=== PATIENT | female | born 1940 | race Hispanic/Latino ===

== ENCOUNTER 2018-04-11 21:30 | Emergency (ER) | payer OTHER, BC ==
--- OUTSIDE RECORDS SUMMARY | 2018-04-11 21:32 | XMS REPORT ---
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 Meclizine HCl ND 49359515793 25 MG Orally Aug 14, Active 1 tablet every 6 hrs. 2017 as needed Methocarbamol [facility] 91032285580 500 MG Oral Active TAKE 1 TABLET BY MOUTH 3 TIMES A DAY FOR MUSCLE SPASMS Cozaar [facility] 61049332427 25 MG Orally Aug 17, Active 1 tablet Once a day 2017 Norvasc [facility] 81831149123 2.5 MG Active TAKE 1 TABLET BY MOUTH EVERY DAY Trimethoprim [facility] 87649092636 100 MG Oral Active TAKE 1 TABLET BY MOUTH EVERY DAY Amlodipine [facility] 39766469252 2.5 MG Oral Active TAKE 1 Besylate TABLET BY MOUTH EVERY DAY Losartan ND 67320674978 100 MG Oral Active 1/2 tab Potassium Once a day Triamterene-HCTZ ND 79544470624 37.5-25 MG Oral Active TAKE ONE CAPSULE BY MOUTH EVERY DAY Cozaar [facility] 58047669033 100 MG Active TAKE 1 TABLET BY MOUTH EVERY DAY Voltaren [facility] [address]-14 25 MG Orally Aug 17, Active 1 tablet Four times a 2018 with food day or milk Results No Known Results Summary Purpose eClinicalWorks Submission
--- OUTSIDE RECORDS SUMMARY | 2018-04-11 21:32 | XMS REPORT ---
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 Problem Essential hypertension I10 Active Problem Total knee replacement status Z96.659 Active Assessment Total knee replacement status Z96.659 Active Assessment Pain, joint, knee, left M25.562 Active Medications Medication Code Code Instructions Start End Status Dosage System Date Date Norvasc [facility] 31629502817 2.5 MG Active TAKE 1 TABLET BY MOUTH EVERY DAY Sertraline HCl [facility] 48726780720 25 MG Orally Active 1 tablet Once a day Trospium [facility] 21232020862 60 MG Oral Active TAKE 1 Chloride ER CAPSULE(S ) EVERY DAY BY ORAL ROUTE FOR 30 DAYS. Losartan [facility] 70393975510 100 MG Oral Active 1/2 tab Potassium Once a day Cozaar ND 18840281915 25 MG Orally Aug 17, Active 1 tablet Once a day 2017 Methocarbamol ND 98108336729 500 MG Oral Active TAKE 1 TABLET BY MOUTH 3 TIMES A DAY FOR MUSCLE SPASMS Triamterene-HCTZ [facility] 78243884361 37.5-25 MG Oral Active TAKE ONE CAPSULE BY MOUTH EVERY DAY Voltaren [facility] [address]-80 25 MG Orally Aug 17, Active 1 tablet Four times a 2018 with food day or milk Trimethoprim [facility] 66521217787 100 MG Oral Active TAKE 1 TABLET BY MOUTH EVERY DAY Amlodipine ND 43271955595 2.5 MG Oral Active TAKE 1 Besylate TABLET BY MOUTH EVERY DAY Vitamin C ND 89477787265 1000 MG Orally Aug 17, Active 1 tablet Once a day 2018 Meclizine HCl ND 81423905235 25 MG Orally Aug 14, Active 1 tablet every 6 hrs. 2018 as needed Results No Known Results Summary Purpose eClinicalWorks Submission
--- OUTSIDE RECORDS SUMMARY | 2018-04-11 21:32 | XMS REPORT ---
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
[2018-04-11] MEDS ORDERED: IBUPROFEN 400 MG TAB ONE (21:38)
[2018-04-11] MEDS ORDERED: ACETAMINOPHEN 325 MG TABLET ONE (21:39)
[2018-04-11] MEDS ORDERED: NA CHLORIDE 0.9% 1,000 ML ONE (22:08)
[2018-04-11 22:17] LABS: Absolute Lymphocytes (CBC) 0.6 K/uL (0.7-4.9); Absolute Monocytes 0.2 K/uL (0.1-1.3); Absolute Neutrophil 9.3 K/uL (1.8-8.0); Basophils % 0.2 % (0-1.3); Eosinophils % 0.2 % (0-4.4); Hematocrit 31.4 % (36.0-45.0); Lymphocytes % 5.9 % (15.3-44.8); MCH 31.6 pg (27.0-35.0); MCV 93.9 fL (80-100); MPV 9.9 fL (7.6-11.3); Monocytes % 1.7 % (3.3-12.3); RBC Red Blood Cell Count 3.35 M/uL (3.86-4.86)
[2018-04-11 22:20] LABS: Protime INR 1.14
[2018-04-11 22:37] LABS: ALT/SGPT 16 U/L (12-78); AST/SGOT 21 U/L (15-37); Albumin 3.8 g/dL (3.4-5.0); Alkaline Phosphatase 93 U/L (45-117); BUN Blood Urea Nitrogen 22 mg/dL (7-18); Bicarbonate 26 mmol/L (21-32); Bilirubin Direct 0.2 mg/dL (0-0.2); Bilirubin Total 0.7 mg/dL (0.2-1.0); CKMB Creatine Kinase MB 1.1 ng/mL (0.3-3.6); Creatine Phosphokinase 128 U/L (26-192); Glucose Level 109 mg/dL (74-106); Lipase 88 U/L (73-393); Potassium 4.2 mmol/L (3.5-5.1); Protein, Total 7.5 g/dL (6.4-8.2); Sodium Level 139 mmol/L (136-145); Troponin (Emerg Dept Use Only) < 0.02 ng/mL (0.0-0.045)
[2018-04-11 23:48] LABS: Blood Morphology Comment NOT SEEN (NOT SEEN); Platelet Estimate ADEQ
--- NOTE | 2018-04-11 23:59 | EDPHYS ---
Physician Documentation [facility] Name: Tara Hassan Age: 77 yrs Sex: Female : 1940 Arrival Date: 04/11/2018 Time: 21:31 Bed 7 Private MD: ED Physician Tracey Justice HPI: 04/11 21:54 This 77 yrs old Female presents to ER via EMS with complaints of Flu Symptoms. ma2 21:54 The patient reports fever, that was measured at 104 degrees Fahrenheit. Onset: The ma2 symptoms/episode began/occurred gradually. Modifying factors: there are no obvious modifying factors. Associated signs and symptoms: Pertinent positives: chills, Pertinent negatives: None. headache, hemoptysis. Associated signs and symptoms: Pertinent positives: Pertinent negatives: abdominal pain, altered mental status, backache, chills, diarrhea, pulling at ears, nausea, night sweats, sinus congestion, skin rash. Severity of symptoms: At their worst the symptoms were moderate in the emergency department the symptoms are unchanged. The patient has not experienced similar symptoms in the past. here with 1 day of fever and muscle aches . Historical: - Allergies: 21:41 Codeine; lp1 21:41 Sulfa (Sulfonamide Antibiotics); lp1 - Home Meds: 21:41 losartan oral oral [Active]; amlodipine oral [Active]; lp1 - PMHx: 21:41 Hypertension; lp1 - PSHx: 21:41 Knee replacement; Partial hysterectomy; lp1 - Immunization history:: Adult Immunizations up to date. - Social history:: Smoking status: Patient/guardian denies using tobacco, Patient/guardian denies using alcohol, street drugs, The patient lives with family. - Ebola Screening: : No symptoms or risks identified at this time. - Family history:: not pertinent. ROS: 21:54 Eyes: Negative for injury, pain, redness, and discharge, ENT: Negative for injury, ma2 pain, and discharge, Neck: Negative for injury, pain, and swelling, Cardiovascular: Negative for chest pain, palpitations, and edema, Respiratory: Negative for shortness of breath, cough, wheezing, and pleuritic chest pain, Abdomen/GI: Negative for abdominal pain, nausea, diarrhea, and constipation, Skin: Negative for injury, rash, and discoloration. 21:54 Constitutional: Positive for body aches, chills, Negative for malaise, poor PO intake. 21:54 Eyes: Negative for 21:54 All other systems are negative. Exam: 21:54 Constitutional: This is a well developed, well nourished patient who is awake, alert, ma2 and in no acute distress. Head/Face: Normocephalic, atraumatic. Eyes: Pupils equal round and reactive to light, extra-ocular motions intact. Lids and lashes normal. Conjunctiva and sclera are non-icteric and not injected. Cornea within normal limits. Periorbital areas with no swelling, redness, or edema. ENT: Nares patent. No nasal discharge, no septal abnormalities noted. Tympanic membranes are normal and external auditory canals are clear. Oropharynx with no redness, swelling, or masses, exudates, or evidence of obstruction, uvula midline. Mucous membranes moist. Neck: Trachea midline, no thyromegaly or masses palpated, and no cervical lymphadenopathy. Supple, full range of motion without nuchal rigidity, or vertebral point tenderness. No Meningismus. Chest/axilla: Normal chest wall appearance and motion. Nontender with no deformity. No lesions are appreciated. Cardiovascular: Regular rate and rhythm with a normal S1 and S2. No gallops, murmurs, or rubs. Normal PMI, no JVD. No pulse deficits. Respiratory: Lungs have equal breath sounds bilaterally, clear to auscultation and percussion. No rales, rhonchi or wheezes noted. No increased work of breathing, no retractions or nasal flaring. Abdomen/GI: Soft, non-tender, with normal bowel sounds. No distension or tympany. No guarding or rebound. No evidence of tenderness throughout. Back: No spinal tenderness. No costovertebral tenderness. Full range of motion. Skin: Warm, dry with normal turgor. Normal color with no rashes, no lesions, and no evidence of cellulitis. MS/ Extremity: Pulses equal, no cyanosis. Neurovascular intact. Full, normal range of motion. Neuro: Awake and alert, GCS 15, oriented to person, place, time, and situation. Cranial nerves II-XII grossly intact. Motor strength 5/5 in all extremities. Sensory grossly intact. Cerebellar exam normal. Normal gait. Psych: Awake, alert, with orientation to person, place and time. Behavior, mood, and affect are within normal limits. Vital Signs: 21:38 BP 116 / 43; Pulse 87; Resp 20; Temp 104.9(O); Pulse Ox 100% on R/A; Weight 68.95 kg; lp1 Height 5 ft. 0 in. (152.40 cm); Pain 0/10; 22:30 BP 114 / 53; Pulse 77; Resp 22; Pulse Ox 99% on R/A; lp1 23:20 BP 106 / 47; Pulse 81; Resp 20; Temp 100.3(O); Pulse Ox 98% on R/A; lp1 04/12 00:02 BP 109 / 53; Pulse 78; Resp 20; Temp 100.1(O); Pulse Ox 98% on R/A; Pain 0/10; lp1 04/11 21:38 Body Mass Index 29.69 (68.95 kg, 152.40 cm) lp1 MDM: 04/11 21:33 Patient medically screened. ma2 21:54 Differential diagnosis: viral Infection, bacterial infection, URI, bronchitis, ma2 pneumonia UTI, gastroenteritis. 23:54 Data reviewed: vital signs, nurses notes, lab test result(s), EKG, radiologic studies. ma2 Counseling: I had a detailed discussion with the patient and/or guardian regarding: the historical points, exam findings, and any diagnostic results supporting the discharge/admit diagnosis, the presence of at least one elevated blood pressure reading (>120/80) during this emergency department visit, lab results, the need for outpatient follow up. Response to treatment: the patient's symptoms have markedly improved after treatment. ED course: patient feels better, CRP is elevated, however she does not have any symptoms.. DD includes early viral prodrome, early infectious process, unlikely to have spinal epidural abscess as she is only tender on left paraspinal muscle and that is resolved now, she will f/u with her PCP tomorrow for further workup of fever of unknown origin. . 04/11 21:39 Order name: Influenza Screen (a \T\ B); Complete Time: 23:27 pr2 04/11 21:39 Order name: Strep; Complete Time: 23:27 [facility] 04/11 21:51 Order name: C-Reactive Protein; Complete Time: 23:27 04/11 21:51 Order name: Blood Culture Adult (2) 04/11 21:51 Order name: Basic Metabolic Panel; Complete Time: 23:27 04/11 21:51 Order name: CBC with Diff; Complete Time: 23:59 04/11 21:51 Order name: Ckmb; Complete Time: 23:27 pr04/11 21:51 Order name: CPK; Complete Time: 23:27 04/11 21:51 Order name: Lactate; Complete Time: 23:27 04/11 21:51 Order name: LFT's; Complete Time: 23:27 04/11 21:51 Order name: Lipase; Complete Time: 23:27 04/11 21:51 Order name: Procalcitonin; Complete Time: 23:47 04/11 21:51 Order name: Protime (+inr); Complete Time: 23:27 04/11 21:51 Order name: Ptt, Activated; Complete Time: 23:27 04/11 21:51 Order name: Troponin (emerg Dept Use Only); Complete Time: 23:27 04/11 21:51 Order name: Chest Single View XRAY 04/11 21:51 Order name: Accucheck; Complete Time: 22:01 04/11 21:51 Order name: Cardiac monitoring; Complete Time: 22:01 04/11 21:51 Order name: EKG - Nurse/Tech; Complete Time: 22:08 04/11 21:51 Order name: IV Saline Lock - Large Bore; Complete Time: 22:00 [facility] 04/11 21:51 Order name: Labs collected and sent; Complete Time: 22:00 04/11 21:51 Order name: O2 Per Protocol; Complete Time: 22:00 [facility] 04/11 21:51 Order name: O2 Sat Monitoring; Complete Time: 22:00 [facility] 04/11 22:43 Order name: Throat Culture [facility] 04/11 22:44 Order name: Manual Differential; Complete Time: 23:59 EDMS 04/11 23:28 Order name: ESR ma2 Administered Medications: 21:39 Drug: Tylenol 650 mg Route: PO; lp1 23:23 Follow up: Response: Temperature is decreased lp1 21:39 Drug: Motrin 400 mg Route: PO; lp1 23:23 Follow up: Response: Temperature is decreased lp1 22:07 Drug: NS 0.9% 1000 ml Route: IV; Rate: 1 bolus; Site: right antecubital; lp1 23:23 Follow up: IV Status: Completed infusion; IV Intake: 1000ml lp1 Disposition: 04/11/18 23:58 Discharged to Home. Impression: Fever of other and unknown origin. - Condition is Stable. - Medication Reconciliation Form, Thank You Letter, Antibiotic Education, Prescription Opioid Use form. - Follow up: Private Physician; When: Tomorrow; Reason: Continuance of care. - Problem is new. - Symptoms have improved. Signatures: Dispatcher [employer] EDSujey Durand RN RN lp1 Tracey Justice MD MD ma2 Corrections: (The following items were deleted from the chart) 04/12 00:09 04/11 23:58 04/11/2018 23:58 Discharged to Home. Impression: Fever of other and unknown lp1 origin. Condition is Stable. Forms are Medication Reconciliation Form, Thank You Letter, Antibiotic Education, Prescription Opioid Use. Follow up: Private Physician; When: Tomorrow; Reason: Continuance of care. Problem is new. Symptoms have improved. ma2
--- NOTE | 2018-04-11 23:59 | ER ---
Nurse's Notes [facility] Name: Tara Hassan Age: 77 yrs Sex: Female : 1940 Arrival Date: 04/11/2018 Time: 21:31 Bed 7 Private MD: Diagnosis: Fever of other and unknown origin Presentation: 04/11 21:36 Presenting complaint: EMS states: Called for patient with high fever, no other lp1 complaints; Fever began today, last took Tylenol at 1430; Temp of 103 on scene, 104.8 by EMS on arrival to ED. Transition of care: patient was not received from another setting of care. Onset of symptoms was April 11, 2018. Risk Assessment: Do you want to hurt yourself or someone else? Patient reports no desire to harm self or others. Initial Sepsis Screen: Does the patient meet any 2 criteria? Temp <36.0*C (96.8*F)) or > 38.3*C (100.4*F). No. Patient's initial sepsis screen is negative. Does the patient have a suspected source of infection? No. Patient's initial sepsis screen is negative. Care prior to arrival: None. 21:36 Method Of Arrival: EMS: [facility] lp1 21:36 Acuity: MAR 3 lp1 Historical: - Allergies: 21:41 Codeine; lp1 21:41 Sulfa (Sulfonamide Antibiotics); lp1 - Home Meds: 21:41 losartan oral oral [Active]; amlodipine oral [Active]; lp1 - PMHx: 21:41 Hypertension; lp1 - PSHx: 21:41 Knee replacement; Partial hysterectomy; lp1 - Immunization history:: Adult Immunizations up to date. - Social history:: Smoking status: Patient/guardian denies using tobacco, Patient/guardian denies using alcohol, street drugs, The patient lives with family. - Ebola Screening: : No symptoms or risks identified at this time. - Family history:: not pertinent. Screenin:42 Abuse screen: Denies threats or abuse. Denies injuries from another. Nutritional lp1 screening: No deficits noted. Tuberculosis screening: No symptoms or risk factors identified. Fall Risk None identified. Assessment: 21:42 General: Appears uncomfortable, Behavior is appropriate for age. General: Reports lp1 chills for 12-24 hours, fever for 12-24 hours, fatigue for. Pain: Denies pain. Neuro: Level of Consciousness is awake, alert, obeys commands, Oriented to person, place, time, situation. Cardiovascular: Capillary refill < 3 seconds in bilateral fingers toes. Respiratory: Respiratory effort is even, unlabored, Breath sounds are clear bilaterally. Denies cough. GI: No signs and/or symptoms were reported involving the gastrointestinal system. : No signs and/or symptoms were reported regarding the genitourinary system. EENT: No signs and/or symptoms were reported regarding the EENT system. Derm: Skin is intact, Skin is dry, Skin is normal, Skin temperature is hot. Musculoskeletal: Circulation, motion, and sensation intact. 22:30 Reassessment: Patient appears in no apparent distress at this time. No changes from lp1 previously documented assessment. Patient and/or family updated on plan of care and expected duration. Pain level reassessed. 23:21 Reassessment: Assisted patient to bathroom, Patient missed cup, unable to collect urine lp1 sample Patient states feeling better. Patient states symptoms have improved. 04/12 00:08 Reassessment: Patient appears in no apparent distress at this time. Patient denies pain lp1 at this time. Patient states feeling better. Patient states symptoms have improved. Vital Signs: 04/11 21:38 BP 116 / 43; Pulse 87; Resp 20; Temp 104.9(O); Pulse Ox 100% on R/A; Weight 68.95 kg; lp1 Height 5 ft. 0 in. (152.40 cm); Pain 0/10; 22:30 BP 114 / 53; Pulse 77; Resp 22; Pulse Ox 99% on R/A; lp1 23:20 BP 106 / 47; Pulse 81; Resp 20; Temp 100.3(O); Pulse Ox 98% on R/A; lp1 04/12 00:02 BP 109 / 53; Pulse 78; Resp 20; Temp 100.1(O); Pulse Ox 98% on R/A; Pain 0/10; lp1 04/11 21:38 Body Mass Index 29.69 (68.95 kg, 152.40 cm) lp1 ED Course: 04/11 21:31 Patient arrived in ED. am2 21:32 Tracey Justice MD is Attending Physician. ma2 21:36 Sujey Price, RN is Primary Nurse. lp1 21:38 Triage completed. lp1 21:38 Arm band placed on right wrist. lp1 21:42 Patient has correct armband on for positive identification. Placed in gown. Pulse ox lp1 on. NIBP on. 21:51 Inserted saline lock: 20 gauge in right upper arm, using aseptic technique. Blood bp collected. 22:32 Chest Single View XRAY In Process Unspecified. EDIA 04/12 00:08 No provider procedures requiring assistance completed. IV discontinued, No lp1 redness/swelling at site. Pressure dressing applied. Administered Medications: 04/11 21:39 Drug: Tylenol 650 mg Route: PO; lp1 23:23 Follow up: Response: Temperature is decreased lp1 21:39 Drug: Motrin 400 mg Route: PO; lp1 23:23 Follow up: Response: Temperature is decreased lp1 22:07 Drug: NS 0.9% 1000 ml Route: IV; Rate: 1 bolus; Site: right antecubital; lp1 23:23 Follow up: IV Status: Completed infusion; IV Intake: 1000ml lp1 Intake: 23:23 IV: 1000ml; Total: 1000ml. lp1 Outcome: 23:58 Discharge ordered by . ks2 04/12 00:09 Discharged to home via wheelchair, with family. lp1 Condition: stable Discharge instructions given to patient, family, Instructed on discharge instructions, follow up and referral plans. Demonstrated understanding of instructions, follow-up care. 00:09 Patient left the ED. lp1 Addendum: 04/16/2018 10:01 Addendum: Culture Results: Positive blood culture. Phone call Attempt #1 spoke with s s patient who reports she followed up with her PCP who placed her on appropriate antibiotics and she is now feeling much better. Patient is thankful for phone call. Signatures: Dispatcher [facility] Mag Zendejas RN RN Sujey Price, ERIK RN lp1 Domenica Loza am2 Chuckie Meyers RN RN bp Tracey Justice MD MD ks2 Corrections: (The following items were deleted from the chart) 04/11 23:24 23:21 Reassessment: Assisted patient to bathroom, Patient missed cup, unable to collect lp1 urine sample lp1 04/12 00:07 00:02 BP 109 / 53; Pulse 78bpm; Resp 20bpm; Pulse Ox 98% RA; lp1 lp1
--- NOTE | 2018-04-12 07:56 | RAD REPORT ---
EXAM DESCRIPTION: [facility] Single View04/11/2018 10:34 pm CLINICAL HISTORY: Fever COMPARISON: July 2017 FINDINGS: The lungs appear clear of acute infiltrate. The heart is normal size IMPRESSION: No acute abnormalities displayed
--- NOTE | 2018-04-12 09:25 | EKG ---
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
== END 2018-04-12 00:09 | disposition home or self-care (01) ==
LOC: ER 21:30
DX: R50.9 Fever, unspecified (principal); I10 Essential (primary) hypertension; Z88.2 Allergy status to sulfonamides; Z88.5 Allergy status to narcotic agent
CPT/HCPCS: 36415; 71045; 80048; 80076; 82550; 82553; 83605; 83690; 84145; 84484; 85025; 85610; 85652; 85730; 86140; 87040 ×2; 87070; 87077; 87081; 87186; 87205; 87804 ×2; 93005; 96360; 99284; J7030

== ENCOUNTER 2020-07-17 16:01 | Inpatient (IN) | payer OTHER, BC ==
--- OUTSIDE RECORDS SUMMARY | 2020-07-17 16:03 | XMS REPORT ---
:1940 Author Organization [facility] Address [address] [facility] [place] [address] Care Team Providers Name Role Phone Kaushal Unavailable [phone] PROBLEMS Type Condition ICD9-CM KGR10-[id number] Onset Condition SNOMED Code Notes Code Code Dates Status Problem Primary M16.12 Active 547786765 osteoarthritis of left hip Problem Mixed stress and N39.46 Active 136659766 urge urinary incontinence Problem Hyperkalemia E87.5 Active 57575863 Problem Essential I10 Active 66097586 hypertension Problem Reactive F32.9 Active 12113026 depression ALLERGIES Allergen (clinical Drug/Non Drug Reaction Allergy Type Onset Date S tatus drug ingredient) Allergy documented on EMR codeine codeine halucinnations Drug Allergy Active ENCOUNTERS from 1940 to 2020-04-18 Encounter Location Date Provider Diagnosis [facility] [address] [facility] Apr, Siena Easley [facility] osteoarthritis Family Medicine [address], of left [place] M16.12 [place] [address] Pain, joint, k nee, left M25.562 IMMUNIZATIONS Vaccine Route Administration Date Status Bupivicaine [place] Unknown Jun 16, 2018 Administered Depo Medrol (40mg) Unknown Jun 16, 2018 Administered FLUZONE HIGH DOSE OVER 65 IM Intramuscular Jul 03, 2019 Admin istered FLUZONE HIGH DOSE OVER 65 IM Intramuscular Jul 04, 2018 Admin istered SOCIAL HISTORY Tobacco Use: Social History Observation Description Date Details (start date - stop date) Never Smoker Sex Assigned At : Social History Observation Description Sex Assigned At Unknown Alcohol Screen Question Answer Notes Did you have a drink containing alcohol in the past year? No Points 0 Interpretation Negative Tobacco Use/Smoking Question Answer Notes Are you a never smoker Additional Findings: Tobacco Non-User Current non-smoker REASON FOR REFERRAL No Information VITAL SIGNS No information MEDICATIONS Medication SIG (Take, Route, Start Date End Date Status Frequency, Duration) Triamcinolone Acetonide 1 application to Not-Taking 0.1 % affected area Externally Twice a day for 45 Olmesartan Medoxomil 20 1 tablet Orally Once a Active MG day for 90 Tolterodine Tartrate 2 MG 1 tablet Orally Twice a Mar, 25 2019 Active day for 30 day(s) Vitamin C 1000 MG 1 tablet Orally Once a 30 Jul, 2017 Active day Methocarbamol 500 MG 1 tablet Orally PO TID Jan, Active PRN Triamterene-HCTZ 37.5-25 take one capsule by Active MG mouth every day Oral Every other day Sertraline HCl 25 MG take 1 tablet by mouth Active every day Orally Once a day for 90 Trimethoprim 100 MG TAKE 1 TABLET BY MOUTH Active EVERY DAY Oral for 90 Amlodipine Besylate 2.5 take 1 tablet by mouth Active MG every day Oral Once a day for 90 Tramadol HCl Not-Taking Detrol 1 MG 1 tablet Orally Twice a Acti ve day for 30 Wheelchair - as directed Apr, Active Torsemide 5 MG 1 tablet Orally Once a Mar, Act herber day for 30 day(s) PROCEDURES No Information RESULTS No Results REASON FOR VISIT Wheel Chair MEDICAL (GENERAL) HISTORY Type Description Date Medical History Hip joint pain Medical History Lumbago with sciatica, right side Medical History Trochanteric bursitis Medical History Accelerated hypertension Medical History Seasonal and perennial allergic rhinitis Medical History Obesity Medical History Osteoarthritis, multiple sites Medical History 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 Medical History Sebaceous cyst Medical History Acute UTI Medical History Dizziness Medical History HTN-hypertension Medical History over active bladder Medical History Total knee replacement status Medical History Pain in joint of left hip Medical History Trochanteric bursitis, left hip Medical History Common cold Medical History Dermatitis Surgical History Hysterectomy-partial 1970 Surgical History APA left knee 2001 Surgical History Shoulder right 2001 Surgical History Appendectomy 1971 Surgical History Laminectomy 2015 Surgical History Urethral dilation X3 2014 Surgical History Left total knee arthroplasty. 08/25/2017 Goals Section No Information Health Concerns No Information MEDICAL EQUIPMENT No Information MENTAL STATUS No Information FUNCTIONAL STATUS No Information ASSESSMENTS Encounter Date Diagnosis Notes Apr, Pain, joint, knee, left (ICD-10 - M25.56 2) Apr, Primary osteoarthritis of left hip (ICD- 10 - M16.12) PLAN OF TREATMENT Medication Medication Name Sig Start Date Stop Date Wheelchair - as directed Apr, Next Appt Details Provider Name:Siena Easley, 2020-07-04 10 :20:00 AM, [address], [address], [place], [address], Insurance Providers Payer Name Payer Address Payer Insured Patient Coverage Cover age Phone Name Relationship to Start Date End Date Insured [facility] [address] [phone] MoTara self 2011 and [facility] [address] [facility] [address] MEDICARE Attn Part B [id number] MoTara self 2011 [employer] Claims [address] [facility] [address]
--- OUTSIDE RECORDS SUMMARY | 2020-07-17 16:03 | XMS REPORT | Continuity of Care Document ---
:1940 Author Organization [facility] t Address [address] [place] [address] Care Team Providers Name Role Phone Unavailable Unavailable Unavailable Problems This patient has no known problems. Allergies, Adverse Reactions, Alerts Allergy Allergy Status Severity Reaction(s) Onset Inactive Treating Comm ents Source Name Type Date Date Clinician codeine Adverse Active halucinnatio [facility] Medications Ordered Filled Start Stop Current Ordering Indication Dosage Frequency Signature Comments Components Source Medication Medication Date Date Medication? Clinician (SIG) Name Name Torsemide Torsemide Yes Siena [address] [facility]: [facility] Clinics Immunizations Ordered Filled Immunization Date Status Comments Sourc e Immunization Name Name FLUZONE HIGH DOSE FLUZONE HIGH DOSE 2019-07-[address] [facility] - OVER 65 OVER 65 00:00:00 [facility] Clinics FLUZONE HIGH DOSE FLUZONE HIGH DOSE 2018-07-[address] [facility] - OVER 65 OVER 65 00:00:00 [facility] Clinics Procedures This patient has no known procedures. Encounters Start End Encounter Admission Attending Care Care Encounter Source Date/Time Date/Time Type Type Clinicians Facility Department ID 2020-07-08 2020-07-08 Outpatient [facility] [id number] [facility] 2020-07-04 2020-07-04 Outpatient [facility] [id number] [facility] 2020-04-18 2020-04-18 Outpatient [facility] [id number] [facility] 2020-04-15 2020-04-15 Outpatient [facility] [id number] [facility] 2020-04-05 2020-04-05 [facility] [id number] 17[facility]07[facility]00 17:07:00 [facility] 2020-04-04 2020-04-04 Outpatient [facility] [id number] [facility] 2020-03-07 2020-03-07 [facility] [id number] 13[facility]00[facility]00 13:00:00 [facility] ent Clinics 2020-02-29 2020-02-29 [facility] [id number] 13:47:00 13:47:00 [facility] ent [facility] 2020-02-19 2020-02-19 [facility] [id number] 10:12:00 10:12:00 [facility] ent [facility] 2020-02-12 2020-02-12 [facility] [id number] 13:57:00 13:57:00 [facility] ent [facility] 2020-02-08 2020-02-08 [facility] [id number] 11:15:00 11:15:00 [facility] ent [facility] 2020-02-06 2020-02-06 [facility] [id number] 13:30:00 13:30:00 [facility] ent Clinics 2020-01-03 2020-01-03 [facility] [id number] 11[facility]40:00 11:40:00 t [facility] Medicine Outpati ent Clinics 2019-11-07 2019-11-07 [facility] [id number] 09:41:00 09:41:00 t [facility] Medicine Outpati ent Clinics 2019-11-07 2019-11-07 [facility] [id number] 08[facility]36:00 08:36:00 t [facility] Medicine Outpati ent Clinics 2019-10-23 2019-10-23 [facility] [id number] 14:44:00 14:44:00 t [facility] Medicine Outpati ent Clinics 2019-10-03 2019-10-03 [facility] [id number] 10:20:00 10:20:00 t [facility] Medicine Outpati ent Clinics 2019-09-15 2019-09-15 [facility] [id number] 13:45:00 13:45:00 [facility] Medicine Outpati ent Clinics 2019-08-17 2019-08-17 [facility] [id number] 11:15:00 11:15:00 t [facility] Medicine Outpati ent Clinics 2019 2019 [facility] [id number] 10:30:00 10:30:00 [facility] of [facility] ent Clinics 2019-07-03 2019-07-03 [facility] [id number] 09:40:00 09:40:00 t [facility] Medicine Outpati ent Clinics 2019-04-03 2019-04-03 [facility] [id number] 10:20:00 10:20:00 t [facility] Outpati ent Clinics 2018-09-22 2018-09-22 [facility] [id number] 10:39:00 10:39:00 t Specialty/U Mala kes - Specialty rology Memori a /Urology Clinic l [facility] ent Clinics 2018-08-18 2018-08-18 [facility] [id number] 08:30:00 08:30:00 t [facility] ent Clinics 2018-07-04 2018-07-04 [facility] [id number] 10:30:00 10:30:00 [facility] ent Clinics 2018-04-05 2018-04-05 Outpatient [facility] [id number] 10:00:00 10:00:00 t Specialty/U Mala kes - Specialty rology Memori a /Urology Clinic l [facility] ent Clinics 2018-04-01 2018-04-01 [facility] [id number] 11:17:00 11:17:00 t Specialty/U Mala kes - Specialty rology Memori a /Urology Clinic l [facility] ent Clinics 2018-03-02 2018-03-02 [facility] [id number] 15:20:00 15:20:00 t Specialty/U Mala kes - Specialty rology Memori a /Urology Clinic l [facility] 2018-02-24 2018-02-24 [facility] [id number] 09:30:00 09:30:00 t [facility] of [facility] Results This patient has no known results.
--- OUTSIDE RECORDS SUMMARY | 2020-07-17 16:03 | XMS REPORT ---
:1940 Author Organization [facility] Address [address] [facility] [address] [place] [address] Care Team Providers Name Role Phone Kaushal Unavailable [phone] PROBLEMS Type Condition ICD9-CM [id number] Onset Condition SNOMED Code Notes Code Code Dates Status Problem Hyperkalemia E87.5 Active 09063779 Problem MORALES (dyspnea on R06.00 Active 94419788 exertion) Problem Pressure in chest R07.89 Active 847953777 Problem Essential I10 Active 11420307 hypertension Problem Reactive F32.9 Active 14232209 depression Problem Primary M16.12 Active 871950403 osteoarthritis of left hip Problem Mixed stress and N39.46 Active 196356578 urge urinary incontinence ALLERGIES Allergen (clinical Drug/Non Drug Reaction Allergy Type Onset Date S tatus drug ingredient) Allergy documented on EMR codeine codeine halucinnations Drug Allergy Active ENCOUNTERS from 1940 to 2020-07-08 Encounter Location Date Provider Diagnosis [facility] [address] [facility] [address], [place] [address] IMMUNIZATIONS Vaccine Route Administration Date Status Bupivicaine [place] Unknown Jun 16, 2018 Administered Depo Medrol (40mg) Unknown Jun 16, 2018 Administered FLUZONE HIGH DOSE OVER 65 IM Intramuscular Jul 04, 2020 Admin istered FLUZONE HIGH DOSE OVER 65 [...] No information MEDICATIONS Medication SIG (Take, Route, Notes Start Date End Date Status Frequency, Duration) Detrol 1 MG 1 tablet Orally Twice Ac tive a day for 30 Tramadol HCl Not-Taking Olmesartan Medoxomil 20 1 tablet Orally Once a Active MG day for 90 Triamcinolone Acetonide 1 application to Not-Taking 0.1 % affected area Externally Twice a day for 45 Trimethoprim 100 MG TAKE 1 TABLET BY MOUTH Active EVERY DAY Oral for 90 Vitamin C 1000 MG 1 tablet Orally Once a 30 Jul, 2017 Active day Sertraline HCl 25 MG take 1 tablet by mouth Active every day Orally Once a day for 90 days Wheelchair - as directed Apr, Active Torsemide 5 MG 1 tablet Orally Once a Active day for 30 Amlodipine Besylate 2.5 take 1 tablet by mouth Active MG every day Oral Once a day for 90 Methocarbamol 500 MG 1 tablet Orally PO TID Jan, Active PRN PROCEDURES No Information RESULTS No Results REASON FOR VISIT med refills not at [facility] MEDICAL (GENERAL) HISTORY Type Description Date Medical [...] Laminectomy 2015 Surgical History Urethral dilation X3 2015 Surgical History Left total knee arthroplasty. 08/25/2017 Goals Section No Information Health Concerns No Information MEDICAL EQUIPMENT No Information MENTAL STATUS No Information FUNCTIONAL STATUS No Information ASSESSMENTS No Information PLAN OF TREATMENT Medication Medication Name Sig Start Date Stop Date Olmesartan Medoxomil 20 MG 1 tablet Orally Once a day for 90 Sertraline HCl 25 MG take 1 tablet by mouth every day Orally Once a day for 90 days Next Appt Details Provider Name:Siena Easley, 2020-10-02 10 :20:00 AM, [address], [address], [place], [address], Insurance Providers Payer Name Payer Address Payer Insured Patient Coverage Cover age Phone Name Relationship to Start Date End Date Insured MEDICARE Attn Part B [id number] Tara Hassan self 2011 [employer] Claims [address] [facility] [address] [facility] [address] [phone] Tara Hassan self 2011 and [facility] [address] [facility] [address]
--- OUTSIDE RECORDS SUMMARY | 2020-07-17 16:03 | XMS REPORT ---
:1940 Author Organization [facility] Address [address] [facility] [place] [address] Care Team Providers Name Role Phone Kaushal Unavailable [phone] PROBLEMS Type Condition ICD9-CM [id number] Onset Condition SNOMED Code Notes Code Code Dates Status Problem Hyperkalemia E87.5 Active 76573691 Problem MORALES (dyspnea on R06.00 Active 31509845 exertion) Problem Pressure in chest R07.89 Active 468404031 Problem Essential I10 Active 01202383 hypertension Problem Reactive F32.9 Active 50675481 depression Problem Primary M16.12 Active 117687935 osteoarthritis of left hip Problem Mixed stress and N39.46 Active 553359434 urge urinary incontinence ALLERGIES Allergen (clinical Drug/Non Drug Reaction Allergy Type Onset Date S tatus drug ingredient) Allergy documented on EMR codeine codeine halucinnations Drug Allergy Active ENCOUNTERS from 1940 to 2020-07-14 Encounter Location Date Provider [facility] [address] [facility] Jun, Siena Cadet ntial hypertension Family Medicine [address] ; [place] [address] depression F32 .9 ; MORALES (dyspnea on exe rtion) R06.00 ; Pressu re in chest R07.89 an d Encounter for immunization Z2 3 IMMUNIZATIONS Vaccine Route Administration Date Status Bupivicaine [place] Unknown Jun 16, 2018 Administered Depo Medrol [...] REASON FOR REFERRAL No Information VITAL SIGNS Height 59.5 in Jun, Weight 162.4 lbs Jun, Temperature 97.4 degrees Fahrenheit Jun, BMI 32.25 kg/m2 Jun, Oximetry 100 % Jun, Respiratory Rate 20 /min Jun, MEDICATIONS Medication SIG (Take, Route, Notes Start [...] Information RESULTS No Results REASON FOR VISIT 3 month [phone]/u [phone] MEDICAL (GENERAL) HISTORY Type Description Date Medical [...] cold Medical History Dermatitis Surgical History Hysterectomy-partial 1971 Surgical History APA left knee 2000 Surgical History Shoulder right 2000 Surgical History Appendectomy 1971 Surgical History Laminectomy 2015 Surgical History Urethral dilation X3 2014 Surgical History Left total knee arthroplasty. 08/25/2017 Goals Section No Information Health Concerns No Information MEDICAL EQUIPMENT No Information MENTAL STATUS No Information FUNCTIONAL STATUS No Information ASSESSMENTS Encounter Date Diagnosis Assessment Notes Treatment Notes Treatm ent Clinical Notes Jun, Essential send letter to hypertension (ICD-10 Dr. Velez for - I10) appt. Tara will call his office for an appt. Does not need referral with her Medicare. Jun, Reactive depression (ICD-10 - F32.9) Jun, MORALES (dyspnea on exertion) (ICD-10 - R06.00) Jun, Pressure in chest (ICD-10 - R07.89) Jun, Encounter for immunization (ICD-10 - Z23) PLAN OF TREATMENT Medication Medication Name Sig Start Date Stop Date Olmesartan Medoxomil 20 MG 1 tablet Orally Once a day for 90 Sertraline HCl 25 MG take 1 tablet by mouth every day Orally Once a day for 90 days Treatment Notes Assessment Notes Clinical Notes Essential hypertension send letter to Dr. Velez for appt. Tara will call his office for an appt. Does not ne ed referral with her Medicare. Treatment Notes Test Name Order Date TSH 2020-07-14 Comp. Metabolic Panel (14) (CMP) 2020-07-14 proBNP 2020-07-14 Next Appt Details 3 Months Reason: Provider Name:Siena Easley, 2020-10-02 10 :20:00 AM, [address], [address], [place], [address], Insurance Providers Payer Name Payer Address Payer Insured Patient Coverage Cover age Phone Name Relationship to Start Date End Date Insured MEDICARE Attn Part B [id number] Tara Hassan self 2011 [employer] [address] [place] [address] [employer] [address] [phone] Tara Hassan self 2011 and [facility] [address] [facility] [address]
[2020-07-17 18:10] LABS: Absolute Lymphocytes (CBC) 1.1 K/uL (0.7-4.9); Hematocrit 17.7 % (36.0-45.0); Lymphocytes % 21.5 % (15.3-44.8); MPV 8.3 fL (7.6-11.3); RBC Red Blood Cell Count 1.94 M/uL (3.86-4.86)
[2020-07-17 18:13] LABS: Protime INR 1.12
[2020-07-17] MEDS ORDERED: ONDANSETRON 4 MG/2 ML VIAL ONE (18:26)
[2020-07-17] MEDS ORDERED: MORPHINE 4 MG/ML SYR ONE (18:26)
[2020-07-17 18:35] LABS: Potassium 5.9 mmol/L (3.5-5.1)
[2020-07-17] MEDS ORDERED: INSULIN -REGULAR HUMAN 50 UNIT/0.5 ML ML ONE (19:06)
[2020-07-17] MEDS ORDERED: D50W 50 ML IV ONE ×2 (19:08→20:56)
[2020-07-17] MEDS ORDERED: CALCIUM GLUCONATE 1 GM IVPB 1 GM/50 ML BAG IV ONE (19:09)
[2020-07-17] MEDS ORDERED: SODIUM BICARB 50 MEQ/50ML VIAL ONE (19:09)
[2020-07-17] MEDS ORDERED: NA CHLORIDE 0.9% 1,000 ML ONE (19:09)
--- NOTE | 2020-07-17 19:21 | P.HP ---
Certification for Inpatient Patient admitted to: Observation With expected LOS: <2 Midnights Practitioner: I am a practitioner with admitting privileges, knowledge of patient current condition, hospital course, and medical plan of care. Services: Services provided to patient in accordance with Admission requirements found in Title 42 Section 412.3 of the Code of Federal Regulations Patient History Date of Service: 07/17/20 Reason for admission: Shortness of breath History of Present Illness: 79 yr old female with no significant past medical history other than hypertension has been having shortness of breath for the last 4-5 weeks and has been seeing Dr. Martinez cardiology and was proposed to get a left heart catheterization on Wednesday had a preprocedure lab tests and was showing significant anemia and was sent to ER for further workup and management. patient denies any bleeding. No chest pain. no hematemesis or melena. No fever or chills No nausea vomiting or diarrhea Patient takes Advil for pain in the extremities The patient was assessed in the ER and was noted to have normal vital signs but lab work was significant for anemia with a hemoglobin of 5.5 and hyperkalemia. The patient denies any history of kidney issues previously. Allergies codeine Allergy (Verified 07/17/20 22:27) Unknown Home medications list reviewed: Yes Home Medications: Amlodipine Besylate [Norvasc] 2.5 mg PO [id number] 11/25/16 Ascorbic Acid [Vitamin C*] 1,000 mg PO DAILY 11/25/16 Losartan Potassium [Cozaar] 100 mg PO [id number] 11/25/16 Diclofenac Sodium [Voltaren] 1.16 % TP DAILY 08/19/17 Meclizine HCl [Antivert*] 12.5 mg PO PRN PRN 08/19/17 Trimethoprim 100 mg PO DAILY 08/19/17 Trospium Chloride [Sanctura] 60 mg PO DAILY 08/19/17 Hydrocodone 7.5/APAP 325 [Fluker 7.5/325 mg*] 1 tab PO Q4H PRN tab 08/28/17 - Past Medical/Surgical History Past Medical History: Reviewed- Non-Contributory Past Surgical History: Reviewed- Non-Contributory - Social History Smoking Status: Never smoker Review of Systems 10-point ROS is otherwise unremarkable Physical Examination - Vital Signs Temperature: 98.6 F Blood Pressure: 132/86 Pulse: 78 Respirations: 18 - Physical Exam General: Alert, In no apparent distress, Oriented x3 HEENT: Atraumatic, Normocephalic Neck: Supple, 2+ carotid pulse no bruit Respiratory: Clear to auscultation bilaterally, Normal air movement Cardiovascular: No edema, Regular rate/rhythm, Normal S1 S2 Capillary refill: <2 Seconds Gastrointestinal: Soft and benign, W/out hepatosplenomegaly, No ascites Musculoskeletal: No clubbing, No swelling Integumentary: No rashes, No breakdown Neurological: Normal speech, Normal strength at 5/5 x4 extr Lymphatics: No axilla or inguinal lymphadenopathy - Studies Laboratory Data (last 24 hrs) 07/17/20 17:56: PT 13.2 H, INR 1.12, APTT 28.7 07/17/20 17:56: Sodium 141, Potassium 5.9 H*, BUN 33 H, Creatinine 1.58 H, Glucose 94 07/17/20 17:56: WBC 5.0, Hgb 5.5 L*, Hct 17.7 L*, Plt Count 363 Assessment and Plan - Problems (Diagnosis) (1) Anemia Current Visit: Yes Status: Acute Qualifiers: Anemia type: unspecified type Qualified Code(s): D64.9 - Anemia, unspecified (2) Hyperkalemia Current Visit: Yes Status: Acute (3) Acute kidney injury Current Visit: Yes Status: Acute - Plan Anemia Acute on chronic Hyperkalemia Acute kidney injury Hypertension History of NSAID usage Plan Monitor under telemetry Will transfuse 1 unit of PRBC Will get a repeat H&H in a.m. and transfuse accordingly Will get a stool occult blood Ultrasound of the abdomen Antihyperlipidemic measures start on IV for hydration renal parameters monitored Will get a renal ultrasound if renal parameters are still elevated in a.m. continue home medications and titrate as needed Antihypertensives titrated Advised to stop NSAID usage Admitted on PPI Patient may need to follow up with cardiology and GI as outpatient GI/DVT prophylaxis Advanced directives full code Discharge Plan: Home Plan to discharge in: 24 Hours - Advance Directives Does patient have a Living Will: No Does patient have a Durable POA for Healthcare: No - Code Status/Comfort Care Code Status: Full Code Time Spent Managing Pts Care (In Minutes): 42
--- NOTE | 2020-07-17 19:24 | EDPHYS ---
Physician Documentation [facility] Name: Tara Hassan Age: 79 yrs Sex: Female : 1940 Arrival Date: 07/17/2020 Time: 16:03 Bed 13 Private MD: ED Physician Colin Castelan HPI: 07/17 19:34 This 79 yrs old Female presents to ER via Wheelchair with complaints of kb Abnormal Lab Results. 19:34 PT is scheduled for a heart cath on Wednesday. Came in today for preop labs, got a call kb that her hgl was low and she needed to come to the ER for evaluation. Pt states she was having the heart cath to find the cause of shortness of breath she has been having. Onset: The symptoms/episode began/occurred today. Severity of symptoms: At their worst the symptoms were mild moderate in the emergency department the symptoms are unchanged. The patient has not experienced similar symptoms in the past. The patient has been recently seen by a physician:. Historical: - Allergies: 16:20 Codeine; aa5 - PMHx: 16:20 Hypertension; aa5 - PSHx: 16:20 Knee replacement; Partial hysterectomy; aa5 - Immunization history:: Adult Immunizations unknown. - Social history:: Smoking status: Patient denies any tobacco usage or history of. ROS: 19:32 Constitutional: Negative for fever, chills, and weight loss, Cardiovascular: Negative kb for chest pain, palpitations, and edema, Abdomen/GI: Negative for abdominal pain, nausea, vomiting, diarrhea, and constipation, MS/Extremity: Negative for injury and deformity, Skin: Negative for injury, rash, and discoloration, Neuro: Negative for headache, weakness, numbness, tingling, and seizure. 19:32 Respiratory: Positive for shortness of breath, Negative for cough, dyspnea on exertion, hemoptysis, orthopnea, pleurisy, sputum production, wheezing. Exam: 19:33 Constitutional: This is a well developed, well nourished patient who is awake, alert, kb and in no acute distress. Head/Face: Normocephalic, atraumatic. Chest/axilla: Normal chest wall appearance and motion. Nontender with no deformity. No lesions are appreciated. Cardiovascular: Regular rate and rhythm with a normal S1 and S2. No gallops, murmurs, or rubs. Normal PMI, no JVD. No pulse deficits. Respiratory: Lungs have equal breath sounds bilaterally, clear to auscultation and percussion. No rales, rhonchi or wheezes noted. No increased work of breathing, no retractions or nasal flaring. Abdomen/GI: Soft, non-tender, with normal bowel sounds. No distension or tympany. No guarding or rebound. No evidence of tenderness throughout. Skin: Warm, dry with normal turgor. Normal color with no rashes, no lesions, and no evidence of cellulitis. MS/ Extremity: Pulses equal, no cyanosis. Neurovascular intact. Full, normal range of motion. Neuro: Awake and alert, GCS 15, oriented to person, place, time, and situation. Cranial nerves II-XII grossly intact. Motor strength 5/5 in all extremities. Sensory grossly intact. Cerebellar exam normal. Normal gait. Vital Signs: 16:20 BP 133 / 53; Pulse 74; Resp 16 S; Temp 98.9(O); Pulse Ox 99% on R/A; aa5 18:03 BP 149 / 54; Pulse 73; Resp 18 S; Pulse Ox 98% on R/A; ca1 19:00 BP 156 / 54; Pulse 89; Resp 20 S; Pulse Ox 99% on R/A; ca1 19:59 BP 152 / 62; Pulse 86; Resp 22 S; Pulse Ox 99% on R/A; ca1 20:45 BP 159 / 67; Pulse 89; Resp 18 S; Pulse Ox 95% on R/A; ss 21:41 BP 155 / 59; Pulse 76; Resp 18 S; Pulse Ox 95% on R/A; ca1 MDM: 17:32 Patient medically screened. kb 19:30 Data reviewed: vital signs, nurses notes. Data interpreted: Pulse oximetry: on room air kb is 99 %. Interpretation: normal. Counseling: I had a detailed discussion with the patient and/or guardian regarding: the historical points, exam findings, and any diagnostic results supporting the discharge/admit diagnosis, lab results, the need for further work-up and treatment in the hospital. 07/17 17:30 Order name: CBC with Diff; Complete Time: 18:40 kb 07/17 17:30 Order name: Basic Metabolic Panel; Complete Time: 18:38 kb 07/17 17:30 Order name: Type And Screen kb 07/17 17:30 Order name: Protime (+inr); Complete Time: 18:45 kb 07/17 17:30 Order name: Ptt, Activated; Complete Time: 18:45 kb 07/17 18:53 Order name: Packed RBC Leukored EDMS 07/17 19:26 Order name: ABO/RH no charge; Complete Time: 19:28 EDMS 07/17 19:38 Order name: CBC with Automated Diff EDMS 07/17 19:38 Order name: CBC with Automated Diff EDMS 07/17 19:38 Order name: Comprehensive Metabolic Panel EDMS 07/17 19:38 Order name: Comprehensive Metabolic Panel EDMS 07/17 19:38 Order name: Creatine Phosphokinase EDMS 07/17 19:38 Order name: Creatine Phosphokinase EDMS 07/17 19:38 Order name: Creatine Phosphokinase EDOH 07/17 19:38 Order name: Creatine Phosphokinase EDOH 07/17 19:38 Order name: Troponin I EDOH 07/17 19:38 Order name: Troponin I EDOH 07/17 19:38 Order name: Troponin I EDOH 07/17 19:38 Order name: Chest Single View EDMS 07/17 19:39 Order name: Occult Blood EDMS 07/17 19:39 Order name: Abdomen Exam Complete EDMS 07/17 20:44 Order name: Glucose, Ancillary Testing; Complete Time: 20:53 EDMS 07/17 21:29 Order name: SARS-COV-2 RT PCR; Complete Time: 21:31 EDMS 07/17 17:30 Order name: IV Start; Complete Time: 17:58 kb 07/17 17:31 Order name: EKG; Complete Time: 17:32 kb 07/17 17:31 Order name: EKG - Nurse/Tech; Complete Time: 19:22 kb 07/17 19:38 Order name: CONS Pharmacy Consult EDMS 07/17 19:38 Order name: Heart Healthy EDMS Administered Medications: 18:16 Drug: Zofran (Ondansetron) 4 mg Route: IVP; Site: right wrist; ss 19:00 Follow up: Response: No adverse reaction; Nausea is decreased ca1 18:18 Drug: morphine 4 mg {Note: rass 0.} Route: IVP; Site: right wrist; ss 19:00 Follow up: Response: No adverse reaction; Pain is decreased; RASS: Alert and Calm (0) ca1 18:47 Drug: NS 0.9% 1000 ml Route: IV; Rate: 1000 ml; Site: right wrist; ca1 20:26 Follow up: Response: No adverse reaction; IV Status: Completed infusion; IV Intake: ca1 1000ml 18:48 Drug: D50W 50 ml Route: IVP; Site: right wrist; ca1 20:27 Follow up: Response: No adverse reaction ca1 18:58 Drug: Insulin Regular Human 5 units {Co-Signature: vg1 (Helene Nazario RN).} Route: ca1 IVP; Site: right wrist; 20:27 Follow up: Response: No adverse reaction ca1 19:00 Drug: Sodium Bicarbonate 1 amp Route: IVP; Site: right wrist; ca1 20:27 Follow up: Response: No adverse reaction ca1 19:10 Drug: Calcium Gluconate 1 grams Route: IVPB; Infused Over: 60 mins; Site: right wrist; ca1 20:25 Follow up: Response: No adverse reaction; IV Status: Completed infusion; IV Intake: ca1 100ml 20:45 Drug: D50W 50 ml Route: IVP; Site: right wrist; Disposition: 07/18 07:26 Co-signature as Attending Physician, Colin Castelan MD I agree with the assessment and kdr plan of care. Disposition: 07/17/20 19:23 Hospitalization ordered by Kiko Jose for Observation. Preliminary diagnosis are Anemia, unspecified, Hyperkalemia. - Bed requested for Telemetry/MedSurg (observation). - Status is Observation. ca1 - Condition is Stable. - Problem is new. - Symptoms are unchanged. Signatures: Dispatcher [employer] EDOH Geetha Ernandez, POLICE DETECTIVE-C POLICE DETECTIVE-Ckb Colin Castelan MD MD [facility] Chelly La RN RN aa5 Mag Zendejas RN RN ss Alfreda Dougherty RN RN tl1 Kristin Troy RN RN ca1 Helene Nazario RN vg1 Corrections: (The following items were deleted from the chart) 07/17 20:02 18:55 CORONAVIRUS+MR.LAB.BRZ ordered. EDOH EDMS 21:39 19:23 Hospitalization Ordered by Kiko Jose MD for Observation. Preliminary tl1 diagnosis is Anemia, unspecified; Hyperkalemia. Bed requested for Telemetry/MedSurg (observation). Status is Observation. Condition is Stable. Problem is new. Symptoms are unchanged. kb 22:21 21:39 07/17/2020 19:23 Hospitalization Ordered by Kiko Jose MD for Observation. ca1 Preliminary diagnosis is Anemia, unspecified; Hyperkalemia. Bed requested for Telemetry/MedSurg (observation). Status is Observation. Condition is Stable. Problem is new. Symptoms are unchanged. tl1
--- NOTE | 2020-07-17 19:24 | ER ---
Nurse's Notes [facility] Name: Tara Hassan Age: 79 yrs Sex: Female : 1940 Arrival Date: 07/17/2020 Time: 16:03 Bed 13 Private MD: Diagnosis: Anemia, unspecified;Hyperkalemia Presentation: 07/17 16:20 Chief complaint: Patient states: "Dr. Cano did blood work today for my pre-op stuff aa5 for a heart cath but the lab called and said my hemoglobin was low and to come here". Hemoglobin 5.4. Pt reports she's been taking Aleve every night for hip pain. Pt denies bloody stool, denies black stools, or any vomiting. 16:20 Coronavirus screen: Client denies travel out of the [place] in the last 14 days. At this aa5 time, the client does not indicate any symptoms associated with coronavirus-19. Ebola Screen: Patient negative for fever greater than or equal to 101.5 degrees Fahrenheit, and additional compatible Ebola Virus Disease symptoms. Initial Sepsis Screen: Does the patient meet any 2 criteria? No. Patient's initial sepsis screen is negative. Does the patient have a suspected source of infection? No. Patient's initial sepsis screen is negative. Risk Assessment: Do you want to hurt yourself or someone else? Patient reports no desire to harm self or others. Onset of symptoms was June 2020. 16:20 Acuity: MAR 2 aa5 16:20 Method Of Arrival: Wheelchair aa5 Historical: - Allergies: 16:20 Codeine; aa5 - PMHx: 16:20 Hypertension; aa5 - PSHx: 16:20 Knee replacement; Partial hysterectomy; aa5 - Immunization history:: Adult Immunizations unknown. - Social history:: Smoking status: Patient denies any tobacco usage or history of. Screenin:30 Abuse screen: Denies threats or abuse. Denies injuries from another. Nutritional ca1 screening: No deficits noted. Tuberculosis screening: No symptoms or risk factors identified. Fall Risk IV access (20 points). Assessment: 17:30 General: Appears in no apparent distress. comfortable, Behavior is calm, cooperative, ca1 appropriate for age. Pain: Denies pain. Neuro: Level of Consciousness is awake, alert, obeys commands, Oriented to person, place, time, situation. Cardiovascular: Heart tones S1 S2 present Capillary refill < 3 seconds Patient's skin is warm and dry. Pulses are all present. Rhythm is sinus rhythm. Respiratory: Airway is patent Respiratory effort is even, unlabored, Respiratory pattern is regular, symmetrical. GI: Abdomen is flat, non-distended, Bowel sounds present X 4 quads. Abd is soft and non tender X 4 quads. Patient currently denies bloody stool. : No signs and/or symptoms were reported regarding the genitourinary system. EENT: No signs and/or symptoms were reported regarding the EENT system. Derm: Skin is intact, is healthy with good turgor, Skin is pink, warm \\T\\ dry. Musculoskeletal: Circulation, motion, and sensation intact. Capillary refill < 3 seconds. 18:30 Reassessment: Patient appears in no apparent distress at this time. Patient and/or ca1 family updated on plan of care and expected duration. Pain level reassessed. Patient is alert, oriented x 3, equal unlabored respirations, skin warm/dry/pink. 19:23 Reassessment: Patient appears in no apparent distress at this time. Patient and/or ca1 family updated on plan of care and expected duration. Pain level reassessed. Patient is alert, oriented x 3, equal unlabored respirations, skin warm/dry/pink. 19:56 Reassessment: Dr. Jose at bedside. ca1 20:44 Reassessment: Patient appears in no apparent distress at this time. Patient and/or ss family updated on plan of care and expected duration. Pain level reassessed. Patient is alert, oriented x 3, equal unlabored respirations, skin warm/dry/pink. BGL 48, Notified LEANA Iniguez. VO D50W 1 amp. 21:41 Reassessment: Patient appears in no apparent distress at this time. Patient and/or ca1 family updated on plan of care and expected duration. Pain level reassessed. Patient is alert, oriented x 3, equal unlabored respirations, skin warm/dry/pink. Vital Signs: 16:20 BP 133 / 53; Pulse 74; Resp 16 S; Temp 98.9(O); Pulse Ox 99% on R/A; aa5 18:03 BP 149 / 54; Pulse 73; Resp 18 S; Pulse Ox 98% on R/A; ca1 19:00 BP 156 / 54; Pulse 89; Resp 20 S; Pulse Ox 99% on R/A; ca1 19:59 BP 152 / 62; Pulse 86; Resp 22 S; Pulse Ox 99% on R/A; ca1 20:45 BP 159 / 67; Pulse 89; Resp 18 S; Pulse Ox 95% on R/A; ss 21:41 BP 155 / 59; Pulse 76; Resp 18 S; Pulse Ox 95% on R/A; ca1 ED Course: 16:03 Patient arrived in ED. ag5 16:20 Arm band placed on. aa5 16:35 Triage completed. aa5 17:10 Kristin Troy, ERIK is Primary Nurse. ca1 17:28 [facility]etha Ernandez F[facility]-C [facility]. kb 17:28 Colin Castelna MD is Attending Physician. kb 17:30 Patient has correct armband on for positive identification. Placed in gown. Bed in low ca1 position. Call light in reach. Side rails up X2. Pulse ox on. NIBP on. Pillow given. 17:56 Initial lab(s) drawn, by me, by EMS personnel. Inserted saline lock: 20 gauge in right ca1 wrist, using aseptic technique. Blood collected. 17:56 No provider procedures requiring assistance completed. ca1 18:40 Notified Nurse Practitioner and/or Physician Grants Specialist of a critical lab result(s), K ca1 5.9, Hgb 5.5, Hct 17.7. 19:23 Kiko Jose MD is Hospitalizing Provider. kb 19:29 Inserted saline lock: 20 gauge in left antecubital area, using aseptic technique. dh4 21:55 Patient admitted, IV remains in place. ca1 Administered Medications: 18:16 Drug: Zofran (Ondansetron) 4 mg Route: IVP; Site: right wrist; ss 19:00 Follow up: Response: No adverse reaction; Nausea is decreased ca1 18:18 Drug: morphine 4 mg {Note: rass 0.} Route: IVP; Site: right wrist; ss 19:00 Follow up: Response: No adverse reaction; Pain is decreased; RASS: Alert and Calm (0) ca1 18:47 Drug: NS 0.9% 1000 ml Route: IV; Rate: 1000 ml; Site: right wrist; ca1 20:26 Follow up: Response: No adverse reaction; IV Status: Completed infusion; IV Intake: ca1 1000ml 18:48 Drug: D50W 50 ml Route: IVP; Site: right wrist; ca1 20:27 Follow up: Response: No adverse reaction ca1 18:58 Drug: Insulin Regular Human 5 units {Co-Signature: vg1 (Helene Nazario RN).} Route: ca1 IVP; Site: right wrist; 20:27 Follow up: Response: No adverse reaction ca1 19:00 Drug: Sodium Bicarbonate 1 amp Route: IVP; Site: right wrist; ca1 20:27 Follow up: Response: No adverse reaction ca1 19:10 Drug: Calcium Gluconate 1 grams Route: IVPB; Infused Over: 60 mins; Site: right wrist; ca1 20:25 Follow up: Response: No adverse reaction; IV Status: Completed infusion; IV Intake: ca1 100ml 20:45 Drug: D50W 50 ml Route: IVP; Site: right wrist; Medication: 21:00 Blood products: PRBCs X 1 unit given. See transfusion record. ca1 Intake: 20:25 IV: 100ml; Total: 100ml. ca1 20:26 IV: 1000ml; Total: 1100ml. ca1 Outcome: 19:23 Decision to Hospitalize by Provider. kb 21:55 Admitted to Med/surg accompanied by nurse, accompanied by tech, family with patient, ca1 via stretcher, room 208, with chart, Other with BT Report called to ERIK Jimenes 21:55 Condition: stable 21:55 Instructed on the need for admit. 22:21 Patient left the ED. ca1 Signatures: Geetha Ernandez, MALORIE ELIZABETH-Chelly Martinez RN RN aa5 Mag Zendejas RN RN ss Acob, Cheryl, RN RN ca1 Calvin Ramirez [facility] Alec Al [facility] Helene Nazario RN vg1 Corrections: (The following items were deleted from the chart) 16:36 16:30 Arm band placed on aa5 aa5 16:37 16:20 Chief complaint: Patient states: "Dr. Cano did blood work today for my pre-op aa5 stuff for a heart cath but the lab called and said my hemoglobin was low and to come here". Hemoglobin 5.4. aa5 20:02 17:30 GI: Abdomen is flat, non-distended, Bowel sounds present X 4 quads. Abd is soft ca1 and non tender X 4 quads. ca1
[2020-07-17] MEDS ORDERED: ACETAMINOPHEN 500 MG TAB PO PRN (19:33)
[2020-07-17] MEDS ORDERED: ONDANSETRON 4 MG/2 ML VIAL IV PRN (19:33)
[2020-07-17] MEDS ORDERED: MORPHINE 2 MG/ML SYR IV PRN (19:33)
[2020-07-17] MEDS: NA CHLORIDE 0.9% 1,000 ML IV SCH (20:00)
[2020-07-17] MEDS ORDERED: NA CHLORIDE 0.9% 250 ML ONE (20:08)
[2020-07-17 22:24] VITALS: BMI 33.3
[2020-07-18 01:10] LABS: Troponin I 0.02 ng/mL (0.0-0.045)
[2020-07-18] MEDS: NA CHLORIDE 0.9% 1,000 ML IV SCH ×3 (01:18→21:54)
[2020-07-18] MEDS: PANTOPRAZOLE 40MG TABLET PO SCH ×3 (01:30→16:33)
[2020-07-18 07:35] LABS: Absolute Lymphocytes (CBC) 1.3 K/uL (0.7-4.9); Basophils % 0.7 % (0-1.3); Hematocrit 25.8 % (36.0-45.0); Lymphocytes % 22.8 % (15.3-44.8); MPV 8.2 fL (7.6-11.3); RBC Red Blood Cell Count 2.84 M/uL (3.86-4.86)
[2020-07-18 08:01] LABS: Albumin 3.3 g/dL (3.4-5.0); Bilirubin Total 0.5 mg/dL (0.2-1.0); Protein, Total 6.8 g/dL (6.4-8.2)
[2020-07-18 08:04] LABS: Potassium 5.8 mmol/L (3.5-5.1)
[2020-07-18] MEDS ORDERED: SOD POLYSTYREN SUL 15 GM/60 ML UCUP PO ONE ×2 (08:13→19:58)
--- NOTE | 2020-07-18 14:28 | P.PN ---
Subjective Date of Service: 07/18/20 Chief Complaint: Shortness of breath Subjective: No new changes Patient denies any complain. She still hyperkalemic. She denies any melena or bright red blood per rectum or hematemesis. No active bleeding. Physical Examination - Vital Signs Temperature: 97.8 F Blood Pressure: 164/70 Pulse: 66 Respirations: 18 Pulse Ox (%): 94 - Physical Exam General: Alert, In no apparent distress, Oriented x3 HEENT: Mucous membr. moist/pink Neck: JVD not distended Respiratory: Clear to auscultation bilaterally, Normal air movement Cardiovascular: No edema, Regular rate/rhythm, Normal S1 S2 Gastrointestinal: Normal bowel sounds, Soft and benign, Non-distended, No tenderness Musculoskeletal: No swelling, No tenderness Integumentary: No rashes, No erythema Neurological: Normal speech, Normal strength at 5/5 x4 extr - Studies Laboratory Data (last 24 hrs) 07/18/20 07:18: Sodium 143, Potassium 5.8 H*, BUN 26 H, Creatinine 1.35 H, Glucose 78, Total Bilirubin 0.5, AST 19, ALT 11 L, Alkaline Phosphatase 89 07/18/20 07:18: WBC 5.9 D, Hgb 8.2 L D, Hct 25.8 L D, Plt Count 304 07/18/20 07:18: Troponin I 0.02 07/18/20 00:30: Troponin I 0.02 07/17/20 17:56: PT 13.2 H, INR 1.12, APTT 28.7 07/17/20 17:56: Sodium 141, Potassium 5.9 H*, BUN 33 H, Creatinine 1.58 H, Glucose 94 07/17/20 17:56: WBC 5.0, Hgb 5.5 L*, Hct 17.7 L*, Plt Count 363 Microbiology Data (last 24 hrs): 07/18/20 12:57 Stool Stool Occult Blood (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 Kayexalate p.r.n. Continue IV hydration Status post 2 PRBC transfusion. Check iron studies. Check stool for occult blood. Posttransfusion hemoglobin is up to 8.2. Hold NSAIDS and Trimethoprim. Patient to be seen by nephrology. Monitor renal function.
--- NOTE | 2020-07-18 15:31 | RAD REPORT ---
EXAM DESCRIPTION: CT - Abdomen Pelvis Wo Contrast - 07/18/2020 2:48 pm CLINICAL HISTORY: LUCY, Anemia COMPARISON: CT ABD PELVIS W CONTRAST dated 05/02/2013 TECHNIQUE: Axial [address] imaging of the abdomen and pelvis was performed without IV contrast. No IV contrast was given because of allergy, abnormal renal function, patient refusal or physician re quest. No oral contrast administered. All CT scans are performed using dose optimization technique as appropriate and may include automated exposure control or mA/KV adjustment according to patient size. FINDINGS: Small bilateral pleural effusions are present with minimal atelectasis. No cardiomegaly or pericardial effusion. Coronary artery calcifications are present. In the subcutaneous fatty tissues posterior to the lower left ribcage there is a 4 centimeter oval sm ooth soft tissue mass. This has increased in size from 3.5 cm in 2013. This is almost certainly benig n and is nonspecific in its imaging characteristics. The liver, spleen and pancreas show no suspicious findings on non-contrast imaging. Punctate gallston es are hyperdense sludge noted in the dependent portion of the gallbladder. No acute gallbladder or b iliary tree finding noted. No hydronephrosis or suspicious renal mass. No significant adrenal finding. Isodense renal masses an d pyelonephritis cannot be excluded in the absence of IV contrast. Partially filled urinary bladder s hows no wall thickening or mass. Hyperdensity near the trigone of the bladder and urethra region pote ntially blood. This could be related to catheterization. The density is not sufficient for bladder ca lculus. This is a minimal finding and would not be a cause of LUCY or anemia. No dilated bowel loops or bowel wall thickening. No free air, free fluid or inflammatory stranding. No hernia, mass or bulky lymphadenopathy. No suspicious bony findings. Nonspecific stranding in the subcutaneous fat of the abdomen and pelvis probably minimal fluid retent ion. IMPRESSION: No hydronephrosis, obstructing calculus or acute finding. Minimal hyperdensity at the base of the bladder and urethra may be minimal quantities of blood. This potentially could be from a catheterization procedure. This is not believed to be relevant to the LUCY or anemia concerns. No hematoma mass or other significant finding. Nonacute findings detailed in the body of the report. Full assessment is limited is the absence of IV contrast.
--- NOTE | 2020-07-18 16:29 | RAD REPORT ---
EXAM DESCRIPTION: US - Renal Ultrasound-Complete - 07/18/2020 3:44 pm CLINICAL HISTORY: ANEMIA WORK UP COMPARISON: Abdomen Pelvis Wo Contrast dated 07/18/2020 FINDINGS: The right kidney measures 9.3 x 4.3 x 4.4 cm. The left kidney measures 8.6 x 5.3 x 4.6 cm . Normal cortical thickness observed in each kidney. Echogenicity is slightly increased believed to b e body habitus affects. Underlying medical renal disease is possible. No hydronephrosis or suspicious renal mass. Mostly contracted bladder shows no gross abnormality. No intraluminal stone, intraluminal hematoma or mass observed. IMPRESSION: No hydronephrosis or suspicious renal mass. Slight increase in echogenicity is be body habitus artifact. Underlying mild medical renal disease st ill possible.
--- NOTE | 2020-07-18 20:53 | CON ---
Date of Consultation: 07/18/2020 Chief Complaint: Acute kidney injury associated with hyperkalemia, prerenal azotemia, with nonoliguric acute tubular necrosis. The patient has nonoliguric urine output. She was found to have severe anemia. Hemoglobin was 5.4, hematocrit 17.2, platelet count although was within normal limits 349,000. The patient received blood transfusion during this admission and hemoglobin improved to 8.2. The patient was found to have severe hyperkalemia, potassium was 5.9. She received Kayexalate and potassium improved to 5.6. There is no significant metabolic acidosis. Bicarbonate is ranging from 21 to 23. The patient is on sodium bicarbonate tablets to control potassium level and prevent metabolic acidosis worsening. The patient has prerenal azotemia. BUN is up to 36 and creatinine is 1.35. Baseline creatinine level back in 2019 was ranging from 0.7 to 1.3. The patient has chronic kidney disease stage 3 and a during this admission was found to have prerenal azotemia. Renal ultrasound showed some questionable increased kidney echogenicity consistent with medical renal disease, although there is no hydronephrosis. Urinalysis was done previously and did not show significant changes. There was no proteinuria present. Urinalysis is pending during this admission. The patient had a COVID test and COVID test is negative. Chemistry panel done today showed some improvement of potassium level and she was found to have low albumin of 3.3, total protein 6.8. History Of Present Illness: The patient is a 79-year-old woman with history of hypertension, hyperlipidemia. She came to the hospital because of shortness of breath. For at least 4-5 weeks, she was complaining of dyspnea on exertion. She was seen by handtools repairer and was to have left heart catheterization on Wednesday, although lab work showed significant changes of the renal panel and she was referred to emergency room for workup and management of hyperkalemia with some prerenal azotemia. Apparently, the patient was taking Advil for pain, also she received Bactrim and diclofenac along with angiotensin receptor freida, which was used for blood pressure control. Review of Systems: Constitutional: Denies fever or chills. Eyes: Denies vision changes. Ears, Nose, Mouth, and Throat: Denies sore throat or earache. Respiratory: Has some shortness of breath with activities. Denies wheezing and cough. GI: Denies nausea or vomiting. : Denies dysuria or hematuria. All other systems reviewed and all are negative. Past Medical History: Hypertension, hyperlipidemia, chronic kidney disease stage 3, urinary tract infection, chronic pain, osteoarthritis. Social History: Denies tobacco, alcohol, or illicit drugs. Family History: No kidney disease in the family. Physical Examination: General: The patient is awake, alert, follows commands. Eyes: Anicteric sclerae. EOMI. Ears, Nose, Mouth, and Throat: Oral mucosa moist. No pallor. Neck: Supple. No JVD. No bruits. Lungs: Diminished breath sounds at bases. Heart: S1, S2. no pericardial friction rub. Abdomen: Soft, benign, obese, nontender. No rebound. No guarding. Extremities: No clubbing. No cyanosis. No edema. Laboratory Data: Sodium 141, potassium 5.9, BUN 33, creatinine 1.58. Glucose 94. WBC 5.0, hemoglobin 5.5, platelet count 363,000. PT 13.2,. Impression And Plan: 1. Acute anemia, unspecified. The patient will have workup for gastrointestinal bleeding. Possibly, gastrointestinal bleeding is contributory to hyperkalemia, although the patient prior to this admission was taking Bactrim, nonsteroidal antiinflammatory medications along with angiotensin receptor freida and all of them may contribute to hyperkalemia. The patient was started on low-potassium diet and is on sodium bicarbonate to prevent metabolic acidosis. She received Kayexalate for hyperkalemia treatment. Plan is to add Florinef. Potassium level is not improving at this time. 2. Florinef was added. Plan is to monitor electrolytes. Adjust medication as needed. 3. Avoid nephrotoxic medication. Plan is to continue mild hydration for prerenal azotemia. Monitor uric acid level and plan is to screen for proteinuria and check for any evidence of nephritis. The patient did have CT scan of her stone protocol. There is no evidence of kidney stones or obstructive uropathy. Continue mild IV fluids and monitor fluid balance and adjust blood pressure medication to prevent hypotension. EB/MODL Voice ID: [id number] Report ID: [id number] [facility]ITAL[facility]
[2020-07-18] MEDS: FLUDROCORTISONE 0.1 MG TAB PO SCH (21:55)
[2020-07-18] MEDS: SODIUM BICARB 325 MG TAB PO SCH (21:55)
[2020-07-19] MEDS: NA CHLORIDE 0.9% 1,000 ML IV SCH (01:52)
[2020-07-19 05:44] LABS: Absolute Lymphocytes (CBC) 0.9 K/uL (0.7-4.9); Basophils % 0.6 % (0-1.3); Hematocrit 23.9 % (36.0-45.0); MPV 8.2 fL (7.6-11.3); RBC Red Blood Cell Count 2.62 M/uL (3.86-4.86)
[2020-07-19 06:06] LABS: Potassium 4.2 mmol/L (3.5-5.1)
[2020-07-19 07:47] LABS: Urine Appearance CLOUDY; Urine Bilirubin NEGATIVE (NEG); Urine Blood NEGATIVE (NEG); Urine Color YELLOW; Urine Glucose NEGATIVE (NEG); Urine Protein NEGATIVE (NEG); Urine Specific Gravity 1.015 (1.005-1.030)
[2020-07-19 08:21] LABS: Urine Bacteria LOADED /HPF (<20); Urine RBC NONE SEEN /HPF (NONE SEEN)
[2020-07-19 09:53] VITALS: O2SAT 92
[2020-07-19] MEDS: SODIUM BICARB 325 MG TAB PO SCH (09:54)
[2020-07-19] MEDS: PANTOPRAZOLE 40MG TABLET PO SCH (09:54)
[2020-07-19] MEDS: FLUDROCORTISONE 0.1 MG TAB PO SCH (10:36)
[2020-07-19] MEDS ORDERED: NACHLORIDE 0.45% 1,000 ML IV SCH (13:00)
--- NOTE | 2020-07-19 15:31 | P.DS ---
Admission Date: 07/18/20 Discharge Date: 07/19/20 Disposition: ROUTINE DISCHARGE Discharge Condition: FAIR Reason for Admission: Shortness of breath - Problems (1) Acute kidney injury Current Visit: Yes Status: Acute (2) Anemia Current Visit: Yes Status: Acute Qualifiers: Anemia type: unspecified type Qualified Code(s): D64.9 - Anemia, unspecified (3) Hyperkalemia Current Visit: Yes Status: Acute (4) Hypertension Current Visit: Yes Status: Acute Brief History of Present Illness: 79-year-old woman with a history of hypertension presented to the emergency department is effect than the shortness of breath. Patient was being followed by Dr. Martinez was planning cardiac catheterization. She did report severe blood work which showed severe anemia. She was then referred to the emergency department for further evaluation. Blood work in the ED demonstrated elevated serum creatinine, hyperkalemia and hemoglobin of 5.5. Patient was then hospitalized for further management. Hospital Course: Patient admitted to the medical floor. She was transfused 2 units PRBC. Posttransfusion hemoglobin was 7.5. Patient denied any active bleeding, no hematemesis or melena or bright red blood per rectum. Her stool occult blood test was positive. She was placed on oral Protonix. Patient had hyperkalemia which was suspected to be secondary to trimethoprim, and NSAID and Olmesartan use. These medications were discontinued. Hyperkalemia was treated with oral Kayexalate, IV normal saline and oral bicarbonate. He was seen in consultation by nephrology Dr. Kirkland will also gave her a dose of Florinef. Hyperkalemia got resolved. Patient is currently without symptoms. She will need GI and follow up for further workup for GI bleed. The patient is discharged with oral Protonix and iron supplementation. Follow up with Dr. Saini has been recommended. She was on Olmesartan and Trimethoprime which had been discontinued due to the hyperkalemia. Norvasc has been increased from 2.5 to 10 mg to control her blood pressure. Follow up with nephrology is also recommended. Vital Signs/Physical Exam: Temp Pulse Resp BP Pulse Ox 98.1 F 70 16 170/67 H 95 07/19/20 12:00 07/19/20 12:00 07/19/20 12:00 07/19/20 12:00 07/19/20 12:00 General: Alert, In no apparent distress, Oriented x3 Neck: Supple, JVD not distended Respiratory: Clear to auscultation bilaterally, Normal air movement Cardiovascular: No edema, Regular rate/rhythm, Normal S1 S2, No murmurs Gastrointestinal: Normal bowel sounds, Soft and benign, Non-distended, No tenderness Musculoskeletal: No swelling Integumentary: No rashes Neurological: Normal speech, Normal strength at 5/5 x4 extr Laboratory Data at Discharge: WBC 5.8 K/uL (4.3-10.9) 07/19/20 05:30 Hgb 7.5 g/dL (12.0-15.0) L* 07/19/20 05:30 Hct 23.9 % (36.0-45.0) L 07/19/20 05:30 Plt Count 264 K/uL (152-406) 07/19/20 05:30 PT 13.2 SECONDS (9.5-12.5) H 07/17/20 17:56 INR 1.12 07/17/20 17:56 APTT 28.7 SECONDS (24.3-36.9) 07/17/20 17:56 Sodium 144 mmol/L (136-145) 07/19/20 05:30 Potassium 4.2 mmol/L (3.5-5.1) 07/19/20 05:30 BUN 16 mg/dL (7-18) 07/19/20 05:30 Creatinine 0.97 mg/dL (0.55-1.3) 07/19/20 05:30 Glucose 82 mg/dL (74-106) 07/19/20 05:30 Total Bilirubin 0.5 mg/dL (0.2-1.0) 07/18/20 07:18 AST 19 U/L (15-37) 07/18/20 07:18 ALT 11 U/L (12-78) L 07/18/20 07:18 Alkaline Phosphatase 89 U/L (45-117) 07/18/20 07:18 Troponin I 0.02 ng/mL (0.0-0.045) 07/18/20 07:18 Home Medications: Acetaminophen [Tylenol Extra Strength] 1 tab PO SEECOM PRN 07/17/20 Atorvastatin Calcium [Lipitor] 1 tab PO DAILY 07/17/20 Cbd Cream 1,000 mg TOP DAILY 07/17/20 Sertraline [Zoloft*] 25 mg PO DAILY 07/17/20 Tolterodine Tartrate [Detrol] 1 tab PO DAILY 07/17/20 Vit C 1,000 mg PO DAILY 07/17/20 Amlodipine [Norvasc*] 10 mg PO DAILY #30 tab 07/19/20 Iron Polysaccharide Complex [Polysaccharide Iron] 150 mg PO DAILY #30 capsule 07/19/20 Pantoprazole [Protonix Tab*] 40 mg PO BIDAC #60 tab 07/19/20 New Medications: Amlodipine [Norvasc*] 10 mg PO DAILY #30 tab Iron Polysaccharide Complex [Polysaccharide Iron] 150 mg PO DAILY #30 capsule Pantoprazole [Protonix Tab*] 40 mg PO BIDAC #60 tab Diet: Renal Activity: Ad larry Followup: Siena Easley SMALL BOAT ENGINEER [Primary Care Provider] - 1 Week Jonas Saini MD [ASSOCIATE-ACTIVE - CAN ADMIT] - 1-2 Weeks Attila Keys MD [ACTIVE - CAN ADMIT] - 1-2 Weeks Time spent managing pt's care (in minutes): 40
--- NOTE | 2020-07-19 16:13 | EKG ---
Test Date: 2020-07-17 Test Time: 18:57:56 Strength And Conditioning Coach: ALBERTO MEASUREMENT RESULTS: Intervals: Rate: 71 MD: 166 QRSD: 76 QT: 408 QTc: 443 [place]: P: 49 MD: 166 QRS: 48 T: 69 INTERPRETIVE STATEMENTS: Normal sinus rhythm Normal ECG Compared to ECG 04/11/2018 22:03:41 T-wave abnormality no longer present Electronically Signed On 07-19-20 16:09:45 [employer] by Bertrand Velez
[2020-07-19 16:23] VITALS: BP 144/61; TEMP 98
--- NOTE | 2020-07-19 21:37 | PN ---
Date of Progress Note: 07/19/2020 History Of Present Illness: Acute kidney injury associated with hyperkalemia, prerenal azotemia with nonoliguric acute tubular necrosis. Patient was admitted to the hospital for generalized weakness w as found to have severe anemia and received blood transfusion. Hemoglobin was 5.4, improved with tra nsfusion to 8.2. Platelet count was within normal limits. Patient prior to this admission was treat ed with Bactrim as well as she was taking angiotensin receptor freida and received nonsteroidal anti -inflammatory medication at the same time. On arrival to the hospital, patient was found to have hyp erkalemia up to 5.9, improved with Kayexalate. Subsequently, patient received Florinef and potassium level normalized with intravenous fluids. Renal function has improved to baseline. Renal ultrasoun d did not show hydronephrosis. Review of Systems: Denies fever or chills. Physical Examination: General: Not in acute distress. Lungs: Clear to auscultation bilaterally. Heart: S1, S2. Abdomen: Soft and benign. Extremities: No edema. Laboratory Data: Hemoglobin 7.5, WBC 5.8, platelet count is 264,000. Sodium 144, potassium 4.2, chl oride 115, CO2 of 23, BUN 16, creatinine 0.97, calcium 7.8. Impression And Plan: 1.Acute on chronic kidney injury complicated by hyperkalemia secondary to combination of medication including angiotensin receptor freida, nonsteroidal anti-inflammatory medication and Bactrim. Ian james was taken off Bactrim. Patient will continue followup with Nephrology as outpatient. 2.Hypertension, blood pressure controlled. 3.Hyperkalemia, resolved. There is no evidence of metabolic acidosis. Renal ultrasound did not trell w acute changes. There is no hydronephrosis present. Patient will continue low-sodium diet and mode rate potassium. Continue to monitor electrolytes. Follow up with Nephrology. EB/MODL Voice ID: [id number] Report ID: [id number]
[2020-07-20] MEDS ORDERED: SERTRALINE HCL 50 MG TAB PO SCH (09:00)
== END 2020-07-19 17:36 | disposition home or self-care (01) | DRG 640 ==
LOC: ER 16:01 → ERHOLD 19:34 → 2ND 21:49 → OBSVTOIN 07-18 14:02
PROVIDERS: ADMIT Family Medicine; ATTEND Internal Medicine
PROC: 30233N1 Transfusion of Nonautologous Red Blood Cells into Peripheral Vein, Percutaneous Approach (ICD-10-PCS; principal; 2020-07-17)
DX: E87.5 Hyperkalemia (principal); N17.0 Acute kidney failure with tubular necrosis; D64.9 Anemia, unspecified; I12.9 Hypertensive chronic kidney disease with stage 1 through stage 4 chronic kidney disease, or unspecified chronic kidney disease; N18.30 Chronic kidney disease, stage 3 unspecified; T46.5X5A Adverse effect of other antihypertensive drugs, initial encounter; T37.8X5A Adverse effect of other specified systemic anti-infectives and antiparasitics, initial encounter; Z88.5 Allergy status to narcotic agent; Z79.899 Other long term (current) drug therapy; Z96.659 Presence of unspecified artificial knee joint; Z90.711 Acquired absence of uterus with remaining cervical stump; Z20.822 Contact with and (suspected) exposure to COVID-19
CPT/HCPCS: 36415; 36430; 74176; 76770; 80048; 80053; 81001; 82550; 82570; 82947; 84132; 84156; 84484; 85025; 85610; 85730; 86850; 86900; 86901; 87077; 87086; 87088; 87186; 93005; 94760; 96365; 96375; 99285; J0610; J2405; J7030; J7050; P9016; U0003